=== PATIENT | male | born 1990 | race Caucasian/White ===

== ENCOUNTER 2021-09-13 14:18 | Emergency (ER) | payer OTHER ==
[~2021-09-13] VITALS: Ht 167.7 cm; Wt 65.0 kg
[2021-09-13 14:18] VITALS: BP 130/87
--- NOTE | 2021-09-13 14:53 | ED General ---
General Stated Complaint: HEAD TRAUMA-FALL Source of Information: Patient Exam Limitations: No Limitations History of Present Illness Date Seen by Provider: Sep 13, 2021 Time Seen by Provider: 14:50 Initial Comments To ER by EMS with reports of fall. He was up on the roof about 10 feet up when he fainted and fell off the roof landing on his head and wrist. He complains of pain to the head and neck. EMS applied a cervical collar. Timing/Duration: 1-2 Days Severity: Moderate Allergies and Home Medications Allergies Coded Allergies: No Allergy Information Available (Unverified , 09/13/21) Patient Home Medication List Home Medication List Reviewed: Yes Review of Systems Review of Systems Constitutional: see HPI EENTM: see HPI Respiratory: no symptoms reported Cardiovascular: no symptoms reported Genitourinary: no symptoms reported Musculoskeletal: see HPI, neck pain Skin: no symptoms reported Psychiatric/Neurological: No Symptoms Reported Hematologic/Lymphatic: No Symptoms Reported Immunological/Allergic: no symptoms reported Physical Exam Vital Signs Capillary Refill : Height, Weight, BMI Height: '" Weight: lbs. oz. kg; BMI Method: General Appearance: No Apparent Distress, WD/WN, Other (There is a midline occipital scalp abrasion with surrounding hematoma. A depressed skull fracture is possible. There is no hemotympanum or carbajal sign. No epistaxis or evidence of facial or globe injury. His eyes open to verbal stimuli (3), he does not know the year or where he is at or what happened giving him a verbal score of 4, motor function is 5. This gives him GCS of 12.) Eyes: Bilateral Eye Normal Inspection, Bilateral Eye PERRL, Bilateral Eye EOMI HEENT: PERRL/EOMI, TMs Normal, Normal ENT Inspection Neck: Tender Lateral, Tender Midline, Other (In a rigid cervical collar) Respiratory: Chest Non Tender, Lungs Clear, Normal Breath Sounds, No Accessory Muscle Use, No Respiratory Distress Cardiovascular: Regular Rate, Rhythm, Normal Peripheral Pulses Gastrointestinal: Normal Bowel Sounds, Non Tender, Soft Extremity: Normal Capillary Refill, Normal Inspection, Other (Deformity to the right wrist) Neurologic/Psychiatric: Alert, Oriented x3 Skin: Normal Color, Warm/Dry Progress/Results/Core Measures Suspected Sepsis SIRS Temperature: Pulse: Respiratory Rate: Laboratory Tests 09/13/21 14:27: White Blood Count 11.3H Blood Pressure / Mean: Laboratory Tests 09/13/21 14:27: Creatinine 0.78, INR Comment 1.1, Platelet Count 373, Total Bilirubin 1.2H Results/Orders Lab Results Laboratory Tests Test 09/13/21 14:27 09/13/21 14:34 09/13/21 15:23 Range/Units White Blood Count 11.3 H 4.3-11.0 10^3/uL Red Blood Count 4.36 4.30-5.52 10^6/uL Hemoglobin 12.9 L 13.3-17.7 g/dL Hematocrit 40 40-54 % Mean Corpuscular Volume 91 80-99 fL Mean Corpuscular Hemoglobin 30 25-34 pg Mean Corpuscular Hemoglobin Concent 33 32-36 g/dL Red Cell Distribution Width 13.2 10.0-14.5 % Platelet Count 373 130-400 10^3/uL Mean Platelet Volume 10.1 9.0-12.2 fL Immature Granulocyte % (Auto) 2 % Neutrophils (%) (Auto) 58 42-75 % Lymphocytes (%) (Auto) 30 12-44 % Monocytes (%) (Auto) 6 0-12 % Eosinophils (%) (Auto) 2 0-10 % Basophils (%) (Auto) 1 0-10 % Neutrophils # (Auto) 6.6 1.8-7.8 10^3/uL Lymphocytes # (Auto) 3.4 1.0-4.0 10^3/uL Monocytes # (Auto) 0.7 0.0-1.0 10^3/uL Eosinophils # (Auto) 0.2 0.0-0.3 10^3/uL Basophils # (Auto) 0.1 0.0-0.1 10^3/uL Immature Granulocyte # (Auto) 0.3 H 0.0-0.1 10^3/uL Prothrombin Time 14.3 12.2-14.7 SEC INR Comment 1.1 0.8-1.4 Sodium Level 140 135-145 MMOL/L Potassium Level 3.3 L 3.6-5.0 MMOL/L Chloride Level 106 98-107 MMOL/L Carbon Dioxide Level 22 21-32 MMOL/L Anion Gap 12 5-14 MMOL/L Blood Urea Nitrogen 10 7-18 MG/DL Creatinine 0.78 0.60-1.30 MG/DL Estimat Glomerular Filtration Rate 119 BUN/Creatinine Ratio 13 Glucose Level 110 H 70-105 MG/DL Calcium Level 9.1 8.5-10.1 MG/DL Total Bilirubin 1.2 H 0.1-1.0 MG/DL Direct Bilirubin 0.4 H 0.0-0.3 MG/DL Indirect Bilirubin 0.8 MG/DL Aspartate Amino Transf (AST/SGOT) 42 H 5-34 U/L Alanine Aminotransferase (ALT/SGPT) 65 H 0-55 U/L Alkaline Phosphatase 71 40-136 U/L Total Protein 7.1 6.4-8.2 GM/DL Albumin 4.3 3.2-4.5 GM/DL Serum Alcohol < 10 <10 MG/DL Glucometer 104 70-110 MG/DL Urine Color YELLOW Urine Clarity CLEAR Urine pH 7.5 5-9 Urine Specific [place] 1.015 L 1.016-1.022 Urine Protein NEGATIVE NEGATIVE Urine Glucose (UA) NEGATIVE NEGATIVE Urine Ketones NEGATIVE NEGATIVE Urine Nitrite NEGATIVE NEGATIVE Urine Bilirubin NEGATIVE NEGATIVE Urine Urobilinogen 0.2 < = 1.0 MG/DL Urine Leukocyte Esterase NEGATIVE NEGATIVE Urine RBC (Auto) NEGATIVE NEGATIVE Urine RBC NONE /HPF Urine WBC RARE /HPF Urine Squamous Epithelial Cells RARE /HPF Urine Crystals NONE /LPF Urine Bacteria NEGATIVE /HPF Urine Casts PRESENT /LPF Urine Hyaline Casts RARE /LPF Urine Mucus NEGATIVE /LPF Urine Culture Indicated NO My Orders Orders - GUILLERMO KELLEY [employer]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 Cbc No Diff (09/13/21 14:35) Basic Metabolic Panel (09/13/21 14:35) Liver Panel (09/13/21 14:35) Alcohol (09/13/21 14:35) Ua Culture If Indicated (09/13/21 14:35) Type And Screen (09/13/21 14:35) Ct Head/Cervical Spine Wo (09/13/21 14:35) Chest 1 View, Ap/Pa Only (09/13/21 14:35) Pelvis (09/13/21 14:35) End Tidal Co2 (09/13/21 14:35) Monitor-Rhythm Ecg Trace Only (09/13/21 14:35) Ed Iv/Invasive Line Start (09/13/21 14:35) Ct Chest/Abdomen/Pelvis W (09/13/21 14:36) Wrist, Right, 3 Views Or More (09/13/21 14:36) Humerus, Right, 2 Views (09/13/21 14:36) Iohexol Injection (Omnipaque 350 Mg/Ml 1 (09/13/21 15:15) Received Contrast (Hold Metformin- Contr (09/13/21 15:15) Sodium Chloride Flush (Catheter Flush Sy (09/13/21 15:15) Ns (Ivpb) (Sodium Chloride 0.9% Ivpb Bag (09/13/21 15:15) Fentanyl Inj (Sublimaze Injection) (09/13/21 15:15) Cbc With Automated Diff (09/13/21 15:50) Protime With Inr (09/13/21 15:50) Medications Given in ED Current Medications Medications Dose Ordered Sig/Hussein Route Start Time Stop Time Status Last Admin Dose Admin Fentanyl Citrate 25 mcg ONCE ONCE IVP 09/13/21 15:15 09/13/21 15:16 DC 09/13/21 15:31 25 MCG Iohexol 75 ml ONCE ONCE IV 09/13/21 15:15 09/13/21 15:16 DC 09/13/21 15:06 75 ML Sodium Chloride 10 ml NEEDED PRN IV 09/13/21 15:15 09/13/21 15:06 10 ML Sodium Chloride 100 ml ONCE ONCE IV 09/13/21 15:15 09/13/21 15:16 DC 09/13/21 15:06 80 ML Vital Signs/I&O Capillary Refill : Departure Communication (Admissions) [id number] Lo from neurosurgery and Dr. Victor from the emergency room at [facility] in [place] they both accepted the patient and [facility] is here to transport. He remains hemodynamically stable with a GCS of 12. Family Conversation NAME: NATO BRUNNER [facility] REC#: [id number] PT STATUS: REG ER : 1990 PHYSICIAN: GUILLERMO KELLEY APRN ADMIT DATE: 09/13/21/ER Draft Date of Exam:09/13/21 PELVIS INDICATION: Trauma, fell from roof top. Pain. EXAMINATION: Pelvis, 09/13/2021. FINDINGS: Two views of the pelvis. There are no fractures or dislocations. The joint spaces appear preserved. Soft tissues are grossly unremarkable. IMPRESSION: 1. No acute osseous abnormality. Of note, portions of the superolateral border of the right ilium not included on either image. Dictated on workstation # [id number] Dict: 09/13/[id number] Trans: 09/13/21 145 [id number] Interpreted by: LONNIE MAC MD Electronically signed by: NAME: NATO BRUNNER [facility] REC#: [id number] PT STATUS: REG ER : 1990 PHYSICIAN: GUILLERMO KELLEY APRN ADMIT DATE: 09/13/21/ER Draft Date of Exam:09/13/21 CHEST 1 VIEW, AP/PA ONLY INDICATION: Fall from a roof top. TIME OF EXAM: 2:42 p.m. COMPARISON: No prior studies are available for comparison. FINDINGS: Heart size is normal. Lungs are clear. No pulmonary contusion, effusion, or pneumothorax is detected. IMPRESSION: No acute feature detected. Dictated on workstation # [id number] Dict: 09/13/[id number] Trans: 09/13/211454 [id number] Interpreted by: JULIO OSCAR MD Electronically signed by: Impression Primary Impression: Intracranial hemorrhage Additional Impression: Cervical spine fracture Disposition: XFER SHT-TRM HOSP Condition: Stable Transfer Transfer Reason: Exceeds level of care Time Spoke to Accepting Phy: 15:03 GUILLERMO KELLEY APRN Sep 13, 2021 14:52
[2021-09-13 14:56] LABS: ALBUMIN 4.3 GM/DL (3.2-4.5); CHLORIDE 106 MMOL/L (98-107); POTASSIUM 3.3 MMOL/L (3.6-5.0); SODIUM 140 MMOL/L (135-145)
--- NOTE | 2021-09-13 14:56 | Diagnostic Imaging Report ---
INDICATION: Fall from a roof top. TIME OF EXAM: 2:42 p.m. COMPARISON: No prior studies are available for comparison. FINDINGS: Heart size is normal. Lungs are clear. No pulmonary contusion, effusion, or pneumothorax is detected. IMPRESSION: No acute feature detected. Dictated by: Dictated on workstation # [id number]
[2021-09-13 14:57] LABS: CALCIUM 9.1 MG/DL (8.5-10.1)
--- NOTE | 2021-09-13 14:57 | Diagnostic Imaging Report ---
INDICATION: Trauma, fell from roof top. Pain. EXAMINATION: Pelvis, 09/13/2021. FINDINGS: Two views of the pelvis. There are no fractures or dislocations. The joint spaces appear preserved. Soft tissues are grossly unremarkable. IMPRESSION: 1. No acute osseous abnormality. Of note, portions of the superolateral border of the right ilium not included on either image. Dictated by: Dictated on workstation # [id number]
[2021-09-13 14:58] LABS: GLUCOSE 110 MG/DL (70-105); TOTAL PROTEIN 7.1 GM/DL (6.4-8.2)
[2021-09-13 14:59] LABS: CARBON DIOXIDE 22 MMOL/L (21-32)
[2021-09-13 15:00] LABS: BILIRUBIN,TOTAL 1.2 MG/DL (0.1-1.0)
[2021-09-13 15:02] LABS: ALKALINE PHOSPHATASE 71 U/L (40-136); CREATININE SERUM 0.78 MG/DL (0.60-1.30); GFR ESTIMATED 119
[2021-09-13 15:03] LABS: BILIRUBIN,DIRECT 0.4 MG/DL (0.0-0.3); BILIRUBIN,INDIRECT 0.8 MG/DL; BUN/CREATININE RATIO 13
[2021-09-13 15:05] LABS: ALANINE AMINOTRANSFERASE 65 U/L (0-55)
[2021-09-13] MEDS ORDERED: IOHEXOL 350 MG/ML 100 ML (OMNIPAQUE 350) VIAL IV ONE (15:15)
[2021-09-13] MEDS ORDERED: CATHETER FLUSH 10 ML SYR IV PRN (15:15)
[2021-09-13] MEDS ORDERED: fentaNYL INJ 100 MCG/2 ML AMP IVP ONE (15:15)
[2021-09-13] MEDS ORDERED: HOLD METFORMIN - RECEIVED CONTRAST 20 ML VIAL IV SCH (15:15)
[2021-09-13] MEDS ORDERED: NS 100 ML (IVPB) BAG IV ONE (15:15)
--- NOTE | 2021-09-13 15:15 | Diagnostic Imaging Report ---
PROCEDURE: CT chest, abdomen, and pelvis with contrast. TECHNIQUE: Multiple contiguous axial images were obtained through the chest, abdomen, and pelvis after the administration of intravenous contrast. Auto Exposure Controls were utilized during the CT exam to meet ALARA standards for radiation dose reduction. INDICATION: Trauma, fall off of a roof. CT CHEST: No definite mediastinal hematoma or great vessel injury is identified. No pericardial or pleural fluid is detected. No pulmonary contusion or pneumothorax is detected. Thoracic spine shows normal curvature. There does appear to be some slight superior endplate concavity involving the T3 and T4 vertebral bodies with some associated minimal adjacent paraspinous soft tissue. Features are consistent with a small superior end plate fractures with minimal paraspinous hematoma. Remaining vertebrae show normal stature. No other osseous abnormality is seen. CT ABDOMEN AND PELVIS: No focal liver or splenic laceration is seen. Gallbladder is unremarkable. The pancreas, adrenal glands and kidneys are unremarkable. Aorta is unremarkable. No definite free fluid or evidence of hemoperitoneum is identified. The bladder is unremarkable. Bowel loops are normal caliber. Lumbar spine shows normal curvature and alignment. 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 No other osseous abnormality is seen. IMPRESSION: 1. No soft tissue injury in the chest, abdomen or pelvis. 2. Features suggestive of a superior end plate fractures at T3 and T4 without evidence of retropulsion. Dictated by: Dictated on workstation # [id number]
--- NOTE | 2021-09-13 15:20 | Diagnostic Imaging Report ---
INDICATION: Fall. TIME OF EXAM: 2:56 PM Multiple views of the right humerus were obtained. Alignment at the shoulder and elbow appears normal. Humerus appears intact. No fractures are seen. IMPRESSION: No acute bony abnormality is detected. Dictated by: Dictated on workstation # [id number]
--- NOTE | 2021-09-13 15:21 | Diagnostic Imaging Report ---
INDICATION: Fall. TIME OF EXAM: 02:58 p.m. FINDINGS: Three views of the right wrist demonstrate a distal radius fracture with intra-articular extension. No significant displacement or angulation is seen. There is also fracture of the ulnar styloid. Carpus and metacarpals are intact. IMPRESSION: Distal radius and ulnar fractures, as described. Dictated by: Dictated on workstation # [id number]
--- NOTE | 2021-09-13 15:23 | Diagnostic Imaging Report ---
EXAMINATION: CT of the brain and CT cervical spine without contrast, 09/13/2021. TECHNIQUE: Multiple contiguous axial images were obtained through the brain and cervical spine without the use of intravenous contrast. Sagittal and coronal reformations through the cervical spine were then performed. Auto Exposure Controls were utilized during the CT exam to meet ALARA standards for radiation dose reduction. INDICATION: Trauma, fell from a roof top straight onto top of head. Complaining of pain in bilateral shoulders. Head pain. FINDINGS: BRAIN: There is an extra-axial collection of hyperdensity overlying the posterior left parietal and occipital lobes. Its shape is suspicious for an epidural hematoma with subdural blood not excluded. This extends proximally along the posterior aspect of the parietal lobe measuring at least 4.4 cm in cranial to caudal dimension with 0.9 cm in AP dimension. On the coronal reconstructed imaging, there is mild hyperdensity overlying the vertex of the parietal lobe just deep to the vertex of the calvarium, which could represent a small amount of subdural blood as well. Linear hyperdensity along the posterior falx and tentorium is noted and could represent the normal dural reflections. A small amount of subarachnoid blood is not excluded. There is no acute infarct. No mass, mass effect, or midline shift. No hydrocephalus. There is a large scalp hematoma posteriorly and right laterally extending to the vertex with a large hematoma overlying the vertex of the calvarium. There is an underlying nondisplaced, nondepressed fracture which extends from the posterior vertex of the skull left paracentrally and posteriorly to the skull base. The paranasal sinuses demonstrate mucosal thickening with no air-fluid levels appreciated. Mastoid air cells appear clear. IMPRESSION: 1. Suspected epidural hematoma overlying the posterior left parietal and occipital lobes with left lateral mild hyperdensity towards the vertex, perhaps a focus of subdural blood. A component of subarachnoid blood layering along the posterior tentorium and falx not excluded. Short-term follow-up could reevaluate. 2. Calvarial fracture as described extending to the skull base. CT CERVICAL SPINE: There is a predominantly vertical fracture through the inferior endplate of C5 with a vague lucency noted extending through the superior endplate as well. Loss of height of the vertebral body is noted. There is no significant retropulsion into the canal. Question mild loss of height also noted at C4 with a transverse fracture through the left facet at C4 extending through the inferior articulating facet. Diastasis of the fracture site is noted measuring at least 5 mm. There is a nondisplaced fracture through the posterior inferior endplate at C3 with a fracture through the left inferior articulating facet with diastasis of at least 4-5 mm. Question mild loss of height is noted at C6. MRI could evaluate for edema. There is a suspected compression deformity along the superior endplate at T3, incompletely imaged. There is surrounding soft tissue prominence about the adjacent vertebral body. There are no significant subluxations with vertebral bodies fairly well aligned. The prevertebral soft tissues are unremarkable. Visualized lung apices are clear. There is air within the superior mediastinum most likely injected during IV placement; correlate clinically. IMPRESSION: 1. Fractures involving the C3, C4, and C5 levels as delineated above with a possible nondisplaced compression fracture at C6 as well. MRI could further evaluate for edema. 2. Incompletely imaged compression fracture at T3, which could be further evaluated with MRI as well. Other incidental findings as discussed above. Findings called to nurse practitioner Cayetano Lester by Dr. Samson on 09/13/2021 at 3:11 p.m. Dictated by: Dictated on workstation # [id number]
[2021-09-13 15:32] LABS: BILIRUBIN,URINE NEGATIVE (NEGATIVE); CLARITY,URINE CLEAR; COLOR,URINE YELLOW; GLUCOSE, URINE (UA) NEGATIVE (NEGATIVE); KETONES,URINE NEGATIVE (NEGATIVE); LEUKOCYTE ESTERASE ,URINE NEGATIVE (NEGATIVE); NITRITE,URINE NEGATIVE (NEGATIVE); PH,URINE 7.5 (5-9); PROTEIN,URINE NEGATIVE (NEGATIVE)
[2021-09-13 15:40] LABS: BACTERIA,URINE NEGATIVE /HPF; HYALINE CASTS, URINE RARE /LPF; SQUAMOUS EPITHELIAL CELL,UR RARE /HPF; WBC,URINE RARE /HPF
[2021-09-13 16:02] LABS: BASOPHILS # (AUTO) 0.1 10^3/uL (0.0-0.1); BASOPHILS % (AUTO) 1 % (0-10); EOSINOPHILS # (AUTO) 0.2 10^3/uL (0.0-0.3); EOSINOPHILS % (AUTO) 2 % (0-10); HEMATOCRIT 40 % (40-54); HEMOGLOBIN 12.9 g/dL (13.3-17.7); INR 1.1 (0.8-1.4); LYMPHOCYTES # (AUTO) 3.4 10^3/uL (1.0-4.0); LYMPHOCYTES % (AUTO) 30 % (12-44); MEAN CORPUSCULAR HEMOGLOBIN 30 pg (25-34); MEAN CORPUSCULAR HGB CONC 33 g/dL (32-36); MEAN CORPUSCULAR VOLUME 91 fL (80-99); MEAN PLATELET VOLUME 10.1 fL (9.0-12.2); MONOCYTES # (AUTO) 0.7 10^3/uL (0.0-1.0); MONOCYTES % (AUTO) 6 % (0-12); NEUTROPHILS # (AUTO) 6.6 10^3/uL (1.8-7.8); NEUTROPHILS % (AUTO) 58 % (42-75); PLATELET COUNT 373 10^3/uL (130-400); PROTHROMBIN TIME PATIENT 14.3 SEC (12.2-14.7); WHITE BLOOD COUNT 11.3 10^3/uL (4.3-11.0)
== END 2021-09-13 16:27 | disposition short-term general hospital (02) ==
LOC: ER 14:27
DX: S12.200A Unspecified displaced fracture of third cervical vertebra, initial encounter for closed fracture (principal); S12.300A Unspecified displaced fracture of fourth cervical vertebra, initial encounter for closed fracture; S12.400A Unspecified displaced fracture of fifth cervical vertebra, initial encounter for closed fracture; S00.03XA Contusion of scalp, initial encounter; I62.9 Nontraumatic intracranial hemorrhage, unspecified; W13.2XXA Fall from, out of or through roof, initial encounter
CPT/HCPCS: 29125; 70450; 71045; 71260; 72125; 72170; 73060; 73110; 74177; 80048; 80076; 81000; 82947; 85025; 85610; 86850; 86900; 86901; 93041; 99284; G0480; L0150; 80320